=== PATIENT | female | born 1995 | race Caucasian/White ===

== ENCOUNTER 2016-11-20 20:47 | Outpatient (CLI) | payer OTHER ==
[~2016-11-20] VITALS: Ht 167.6 cm; Wt 54.0 kg
[~2016-11-20 20:47] MED LIST: PRENTAB26 PO
[2016-11-20 21:27] VITALS: Ht 167.6 cm; Wt 54.0 kg
[2016-11-20] MEDS ORDERED: POLY335019 PO (22:25)
[2016-11-20] MEDS ORDERED: STOOL SOFTNER PO (22:25)
[2016-11-21] MEDS ORDERED: CEPH500C PO (00:01)
--- NOTE | 2016-11-24 11:37 | EDITING REQUIRED CODING QUERY ---
DIAGNOSIS NEEDED To promote full compliance with coding requirements relating to patient care, physician participation is requested in all cases of furniture lumber production worker uncertainty. Please assist us with the question(s) below: Coding Question: The patient received care in labor and delivery on 11/20/16 as noted within the record. Please document the diagnosis that is being addressed by the medication/treatment. Provider Response: DIAGNOSIS: Abdominal pain WEEKS OF : 26 weeks Thank you for your assistance, Deborah Madden - Certified Pathology Assistant
== END 2016-11-20 21:41 | disposition other institution (70) ==
LOC: C.LD 20:47 → C.OPB 20:47
PROVIDERS: ATTEND Obstetrics & Gynecology
DX: O99.89 Other specified diseases and conditions complicating pregnancy, childbirth and the puerperium (principal); R10.9 Unspecified abdominal pain; Z3A.26 26 weeks gestation of pregnancy

== ENCOUNTER 2016-11-20 21:45 | Emergency (ER) | payer OTHER ==
[~2016-11-20] VITALS: Ht 167.6 cm; Wt 54.0 kg
[2016-11-20 21:49] VITALS: TEMP 37; Ht 167.6 cm; Wt 54.0 kg
[2016-11-20] MEDS ORDERED: SODIUM CHLORIDE 0.9% 1000ML 1,000 ML IV STA (22:03)
--- NOTE | 2016-11-20 22:11 | EMERGENCY ROOM VISIT NOTE ---
History First contact with patient: 21:53 Chief Complaint: ABDOMINAL PAIN Stated Complaint: PAIN IN STOMACH History of Present Illness The patient is a 21 year old female who presents to the Emergency Department by private vehicle for evaluation of her nausea and upper abdominal discomfort. She reports that she wakes not feeling well in general. She has had some nausea without vomiting. She reports having had approximately 3 nosebleeds per day for the past few days. She was evaluated by OB per monitor and sent to the emergency department for further evaluation and management. The patient is 21 weeks and her second . She's had no cough occasions to this point. She's had no vaginal bleeding or discharge. There is been no burning with urination or blood in her urine. She is still feeling movement. She rates her current discomfort as a 7/10. She denies any headaches, dizziness , lightheadedness, chest pain, palpitations, worsening shortness of breath, hemoptysis, hematochezia, melena, hematuria, or dysuria. She reports no upper respiratory infections or fevers. Review of Systems A complete 10-point Review of Systems was discussed with the patient, with pertinent positives and negatives listed in the History of Present Illness. All remaining Review of Systems questions can be considered negative unless otherwise specified. Past Medical/Surgical History Medical Problems: (1) No known health problems Family History No pertinent family history Social History Smoking Status: Former Smoker Smokeless Tobacco Use: No Alcohol Use: none Drug Use: none Marital Status: single Housing Status: lives with family Occupation Status: employed Current/Historical Medications Scheduled Cephalexin Monohydrate (Keflex), 500 MG PO TID Multivit/Min/Iron/Fol Ac/Pren ( Vitamin), 1 TAB PO DAILY [Stool Softner], 1 TAB PO DAILY Scheduled PRN Polyethylene Glycol 3350 (Miralax), 17 GM PO DAILY PRN for Constipation Allergies Coded Allergies: No Known Allergies (Verified , NONE, 09/05/16) Physical Exam Vital Signs Date Time Temp Pulse Resp B/P Pulse Ox O2 Delivery O2 Flow Rate FiO2 11/21/16 00:27 86 18 106/62 93 11/20/16 22:55 83 18 104/59 100 Room Air 11/20/16 21:49 37.0 100 20 98/67 98 Pain Rating (0-10): 7 Physical Exam VITAL SIGNS - Vital signs and nursing notes were reviewed. GENERAL - 21-year-old female appearing her stated age who is in no acute distress. Communicates well with provider and answers questions appropriately. NOSE - Midline and without cyanosis. No epistaxis or purulent drainage noted. Septum midline without deviation or septal hematoma noted. LUNGS - Chest wall symmetric without accessory muscle use, intercostals retractions, or central cyanosis. Normal vesicular breath sounds CTA B/L. No wheezes, rales, or rhonchi appreciated. CARDIAC - RRR with S1/S2. No murmur, rubs, or gallops appreciated. ABDOMEN - Abdominal contour gravid and without pulsations or visible masses. BS normoactive all four quadrants. No tenderness to palpation appreciated throughout. No guarding. No Rebound Tenderness. Negative Rovsing's. Negative Valiente's. No palpable masses, hepatosplenomegaly, or ascites noted. EXTREMITIES - No clubbing or peripheral cyanosis. No pretibial edema present. PSYCH - A&Ox3 and cooperates fully with examiner. Pt is very pleasant and interacts well with examiner. Medical Decision & Procedures ER Provider Diagnostic Interpretation: Radiological imaging and reports were reviewed by myself. Radiologist's Interpretation per [facility] as follows: US OB LIMITED: Single live IUP with heart rate of 148 beats per minute measuring consistent with provided gestational dates. Placenta is anterior without evidence of previa. Cervix is poorly profiled although appears unremarkable. Possible 1 cm residual corpus luteal cyst left ovary. Laboratory Results 11/20/16 22:10 Red Blood Count 4.11, Mean Corpuscular Volume 86.4, Mean Corpuscular Hemoglobin 28.7, Mean Corpuscular Hemoglobin Concent 33.2, Mean Platelet Volume 9.6, Neutrophils (%) (Auto) 87.7, Lymphocytes (%) (Auto) 7.2, Monocytes (%) (Auto) 4.5, Eosinophils (%) (Auto) 0.1, Basophils (%) (Auto) 0.1, Neutrophils # (Auto) 7.24, Lymphocytes # (Auto) 0.59, Monocytes # (Auto) 0.37, Eosinophils # (Auto) 0.01, Basophils # (Auto) 0.01 11/20/16 22:10 Test 11/20/16 22:10 White Blood Count 8.25 K/uL (4.8-10.8) Red Blood Count 4.11 M/uL (4.2-5.4) Hemoglobin 11.8 g/dL (12.0-16.0) Hematocrit 35.5 % (37-47) Mean Corpuscular Volume 86.4 fL (80-100) Mean Corpuscular Hemoglobin 28.7 pg (25-34) Mean Corpuscular Hemoglobin Concent 33.2 g/dl (32-36) Platelet Count 187 K/uL (130-400) Mean Platelet Volume 9.6 fL (7.4-10.4) Neutrophils (%) (Auto) 87.7 % Lymphocytes (%) (Auto) 7.2 % Monocytes (%) (Auto) 4.5 % Eosinophils (%) (Auto) 0.1 % Basophils (%) (Auto) 0.1 % Neutrophils # (Auto) 7.24 K/uL (1.4-6.5) Lymphocytes # (Auto) 0.59 K/uL (1.2-3.4) Monocytes # (Auto) 0.37 K/uL (0.11-0.59) Eosinophils # (Auto) 0.01 K/uL (0-0.5) Basophils # (Auto) 0.01 K/uL (0-0.2) RDW Standard Deviation 41.2 fL (36.4-46.3) RDW Coefficient of Variation 13.0 % (11.5-14.5) Immature Granulocyte % (Auto) 0.4 % Immature Granulocyte # (Auto) 0.03 K/uL (0.00-0.02) Prothrombin Time 9.5 SECONDS (9.0-12.0) Prothromb Time International Ratio 0.9 (0.9-1.1) Activated Partial Thromboplast Time 24.9 SECONDS (21.0-31.0) Partial Thromboplastin Ratio 1.0 Urine Color YELLOW Urine Appearance CLOUDY (CLEAR) Urine pH 8.5 (4.5-7.5) Urine Specific [place] 1.011 (1.000-1.030) Urine Protein NEG (NEG) Urine Glucose (UA) NEG (NEG) Urine Ketones NEG (NEG) Urine Occult Blood NEG (NEG) Urine Nitrite NEG (NEG) Urine Bilirubin NEG (NEG) Urine Urobilinogen NEG (NEG) Urine Leukocyte Esterase MODERATE (NEG) Urine WBC (Auto) 10-30 /hpf (0-5) Urine RBC (Auto) 0-4 /hpf (0-4) Urine Hyaline Casts (Auto) 1-5 /lpf (0-5) Urine Epithelial Cells (Auto) >30 /lpf (0-5) Urine Bacteria (Auto) 1+ (NEG) Urine Renal Epithelial Cells /lpf (0-5) Urine Crystals AMORPHOUS SEDIMENT (NONE Anion Gap 9.0 mmol/L (3-11) Est Creatinine Clear Calc Drug Dose 173.5 ml/min Estimated GFR () > 150.0 Estimated GFR (Non- 143.4 BUN/Creatinine Ratio 17.4 (10-20) Calcium Level 8.6 mg/dl (8.5-10.1) Magnesium Level 1.9 mg/dl (1.8-2.4) Total Bilirubin 0.6 mg/dl (0.2-1) Aspartate Amino Transf (AST/SGOT) 31 U/L (15-37) Alanine Aminotransferase (ALT/SGPT) 52 U/L (12-78) Alkaline Phosphatase 70 U/L (45-117) Total Protein 6.9 gm/dl (6.4-8.2) Albumin 3.3 gm/dl (3.4-5.0) Globulin 3.6 gm/dl (2.5-4.0) Albumin/Globulin Ratio 0.9 (0.9-2) Lipase 118 U/L (73-393) Medications Administered Medications (Trade) Dose Ordered Sig/Sherine Route Start Time Stop Time Status Last Admin Dose Admin Sodium Chloride (Nss 1000ml) 1,000 ml @ 999 mls/hr Q1H1M STAT IV 11/20/16 22:03 11/20/16 23:03 DC 11/20/16 22:18 999 MLS/HR Cephalexin Monohydrate (Keflex 500MG Home Pack) 1 homepack NOW ONCE PO 11/21/16 00:00 11/21/16 00:01 DC 11/21/16 00:21 1 HOMEPACK Cephalexin Monohydrate (Keflex Cap) 500 mg NOW ONCE PO 11/21/16 00:00 11/21/16 00:01 DC 11/21/16 00:15 500 MG ED Course Patient was seen and evaluated by myself. Labs were drawn, saline lock in place. ultrasound was ordered. Patient was hydrated with 1000 mL of normal saline. Laboratory results demonstrate no acute leukocytosis, worrisome anemia, or bandemia. The patient has no significant electrolyte abnormalities. Urinalysis concerning for infection. She will be treated with Keflex. ultrasound as above. Laboratory results and imaging studies were reviewed with the patient and family who acknowledges understanding. The patient and family were educated on worrisome symptoms for return visit to the emergency department. Patient discharged home in good condition. Medical Decision Given the patient's presentation and stated complaints, I did elect to perform the above-mentioned workup. The patient presents today with generalized malaise and lower abdominal discomfort. She has a soft and nontender abdomen which is gravid. She has no fever leukocytosis. Her urine is question for infection. She will be covered with Keflex pending urine cultures. ultrasound is within normal limits. She was seen by the SWING FRAME GRINDER OPERATOR provider lead sales consultant and was monitored without issue. She will follow closely with her office this week. She will return for any changing or worsening symptoms. Patient discharged home afebrile and in good condition. In the evaluation and treatment of this patient, the following differential diagnoses were considered: Ectopic, , threatened , placenta previa, placental abruption, Kidney Stone, STI, Bladder Cancer, Amongst Others. Impression Primary Impression: Suprapubic abdominal pain Additional Impressions: UTI (urinary tract infection), , Malaise Departure Information Dispostion Home / Self-Care Condition GOOD Prescriptions Cephalexin Monohydrate (Keflex) 500 Mg Cap 500 MG PO TID for 7 Days, #21 CAP Prov: Allen Tejada PA-C 11/21/16 Referrals Corinne Weathers M.D. (MEDICAL) (PCP) Patient Instructions A Signature Page, ED UTI Cystitis Female Additional Instructions You have been treated in the Emergency Department for a Urinary Tract Infection (UTI). You have been prescribed Keflex to be taken as prescribed. This is an antibiotic. All antibiotics have the potential to cause diarrhea. Stop this medication and contact a medical provider if you were to develop any significant adverse side effects including: wheezing, shortness of breath, passing out, vomiting, or a diffuse rash. Always take antibiotics as directed and COMPLETE the ENTIRE course regardless of the improvement of your symptoms. For pain control, you can use the following [id number] medicines (if >12 yo): - Regular strength (325mg/tab) Tylenol (acetaminophen) 2 tabs every 4-6 hours as needed. Do not exceed 12 tablets in a 24 hour period. Avoid taking more than 4 grams (4000 mg) of Tylenol per day. This includes any other sources of acetaminophen you may take on a regular basis. Return to the emergency department if your symptoms worsen despite treatment course outlined above. Drink plenty of water and stay well hydrated. As with any trip to the Emergency Department, you should follow-up with your Primary Care Provider from today's visit. Return to the emergency department if your symptoms persist despite treatment plan outlined above or if the following symptoms occur: increased fevers, chills , low back pain, nausea/vomiting, or blood in your urine.
[2016-11-20] MEDS ORDERED: POLY335019 PO (22:25)
[2016-11-20] MEDS ORDERED: STOOL SOFTNER PO (22:25)
[2016-11-20 22:27] LABS: BASO % 0.1 %; BASO ABS # 0.01 K/uL (0-0.2); COMPLETE YES; EOS % 0.1 %; HEMATOCRIT 35.5 % (37-47); IG% 0.4 %; LYMPH % 7.2 %; LYMPH ABS # 0.59 K/uL (1.2-3.4); MEAN CELL VOLUME 86.4 fL (80-100); MEAN CORPUSCULAR HEMOGLOBIN 28.7 pg (25-34); MEAN CORPUSCULAR HGB CONC 33.2 g/dl (32-36); MEAN PLATELET VOLUME 9.6 fL (7.4-10.4); MONO % 4.5 %; NEUT % 87.7 %; PLATELET COUNT 187 K/uL (130-400); RED BLOOD COUNT 4.11 M/uL (4.2-5.4); WHITE BLOOD COUNT 8.25 K/uL (4.8-10.8)
[2016-11-20 22:41] LABS: INR 0.9 (0.9-1.1); PROTHROMBIN TIME (PATIENT) 9.5 SECONDS (9.0-12.0)
[2016-11-20 22:44] LABS: ALT/SGPT 52 U/L (12-78); BLOOD UREA NITROGEN 8 mg/dl (7-18); BUN/CREATININE RATIO 17.4 (10-20); CALCIUM 8.6 mg/dl (8.5-10.1); CARBON DIOXIDE 24 mmol/L (21-32); CHLORIDE 107 mmol/L (98-107); CREATININE 0.43 mg/dl (0.60-1.20); GLUCOSE 76 mg/dl (70-99); MAGNESIUM 1.9 mg/dl (1.8-2.4); POTASSIUM 3.5 mmol/L (3.5-5.1); SODIUM 140 mmol/L (136-145)
[2016-11-20 22:47] LABS: ALB/GLOB RATIO 0.9 (0.9-2); ALKALINE PHOSPHATASE 70 U/L (45-117); AST/SGOT 31 U/L (15-37)
[2016-11-20 23:03] LABS: URINE APPEARANCE CLOUDY (CLEAR); URINE BILIRUBIN NEG (NEG); URINE COLOR YELLOW; URINE EPITHELIAL CELL AUTO >30 /lpf (0-5); URINE NITRITE NEG (NEG); URINE PH 8.5 (4.5-7.5); URINE SPECIFIC GRAVITY 1.011 (1.000-1.030); UROBILINOGEN NEG (NEG); ZZUR CULT IF INDIC CLEAN CATCH YES
[2016-11-20 23:18] LABS: MANUAL MICROSCOPIC REQUIRED? NO; REVIEW REQ? YES
[2016-11-21] MEDS ORDERED: CEPHALEXIN MONOHYDRATE 250 MG CAP PO ONE
[2016-11-21] MEDS ORDERED: CEPHALEXIN 500MG HOME PACK 1 EA BTL PO ONE
[2016-11-21] MEDS ORDERED: CEPH500C PO (00:01)
[2016-11-21 00:27] VITALS: BP 106/62; PULSE 86; O2SAT 93
--- NOTE | 2016-11-21 09:27 | DIAGNOSTIC IMAGING REPORT ---
LIMITED (US) CLINICAL HISTORY: Generalized abdominal pain. COMPARISON STUDY: Pelvic ultrasound 06/23/2015. FINDINGS: The cervix is not well visualized but appears closed. There is an anterior placenta. No evidence for subchorionic hematoma. Normal amniotic fluid volume. heart rate is 148 bpm. The ovaries are within normal limits. 1 cm cyst within the left ovary. The estimated gestational age is 22 weeks and 2 days based off the biparietal diameter. IMPRESSION: Single viable intrauterine gestation with a heart rate of 148 bpm. Electronically signed by: Spencer Simpson M.D. 11/21/2016 9:25 AM Dictated Date/Time: 11/21/2016 9:22 AM
== END 2016-11-21 00:29 | disposition home or self-care (01) ==
LOC: C.EDB 21:46 → C.EDA 11-21 00:29
DX: O26.892 Other specified pregnancy related conditions, second trimester (principal); R10.30 Lower abdominal pain, unspecified; O23.42 Unspecified infection of urinary tract in pregnancy, second trimester; Z3A.21 21 weeks gestation of pregnancy; Z87.891 Personal history of nicotine dependence; Z79.899 Other long term (current) drug therapy

== ENCOUNTER 2017-02-20 10:24 | Emergency (ER) | payer OTHER ==
[~2017-02-20] VITALS: Ht 167.6 cm; Wt 59.1 kg
[~2017-02-20 10:24] MED LIST changes: +POLY335019 PO; +STOOL SOFTNER PO
[2017-02-20 10:48] VITALS: TEMP 36.7; Ht 167.6 cm; Wt 59.1 kg
[2017-02-20] MEDS ORDERED: DOCU1TAB6 PO (11:10)
--- NOTE | 2017-02-20 11:30 | DIAGNOSTIC IMAGING REPORT ---
LEFT FOOT MIN 3 VIEWS ROUTINE CLINICAL HISTORY: Left foot pain following injury. COMPARISON: None FINDINGS: Alignment of the left foot is anatomic. Tarsometatarsal joints are intact. There is no acute fracture. IMPRESSION: No acute fracture or dislocation of the left foot. Electronically signed by: Cuba Pitt M.D. 02/20/2017 11:27 AM Dictated Date/Time: 02/20/2017 11:16 AM
--- NOTE | 2017-02-20 11:38 | EMERGENCY ROOM VISIT NOTE ---
ED Visit Note First contact with patient: 10:53 CHIEF COMPLAINT: Left Foot injury HISTORY of present illness: This 22-year-old female presents the ER with chief complaint of left foot pain. The patient states that her son dropped a Gatorade bottle on her left foot yesterday but she did not think anything of it until last night when she went to bed she started having pain in the left foot. The patient states the pain is across the top of the foot mainly on the lateral aspect. The patient denies any ankle pain. The patient denies any numbness and tingling in her toes. The patient denies any prior injury to her left foot. REVIEW OF SYSTEMS: 6 system review was performed and was negative unless stated otherwise in history of present illness. PMH: The patient is healthy; wisdom teeth removal SOCIAL HISTORY: Patient lives with her son. The patient denies any tobacco or alcohol use. PHYSICAL EXAM: Vital Signs: Were reviewed Reviewed Nurse's notes. GENERAL: 22- year-old female appears in no acute distress. MENTAL Status: Alert and oriented 3. LEFT Foot: There is tenderness and swelling over the dorsum of the foot but no deformity. This is tenderness is over the fourth and fifth metatarsal region and lateral tarsal region. Patient is able to move her toes without difficulty. Sensation is intact. EMERGENCY DEPARTMENT COURSE: The patient was evaluated. The patient was offered pain medication but declined. X-ray of the left foot was ordered and interpreted by the radiologist and myself. DIAGNOSTICS:LEFT FOOT MIN 3 VIEWS ROUTINE CLINICAL HISTORY: Left foot pain following injury. COMPARISON: None FINDINGS: Alignment of the left foot is anatomic. Tarsometatarsal joints are intact. There is no acute fracture. IMPRESSION: No acute fracture or dislocation of the left foot. Electronically signed by: Cuba Pitt M.D. 02/20/2017 11:27 AM Dictated Date/Time: 02/20/2017 11:16 AM The patient was informed of the findings. She was given crutches. The patient was discharged home in stable condition. DIAGNOSIS: Left foot pain TREATMENT PLAN: Wear supportive shoes. Tylenol as needed for pain. Use crutches to aid in ambulation until pain is tolerable without them. Ice the area several times a day especially after long periods of weightbearing. If symptoms persist or worsen, follow-up with your family doctor. Problem List Medical Problems: (1) No known health problems Status: Chronic Current/Historical Medications Scheduled Multivit/Min/Iron/Fol Ac/Pren ( Vitamin), 1 TAB PO DAILY Scheduled PRN Docusate Sodium (Docusate Sodium), 100 MG PO DAILY PRN for Constipation Polyethylene Glycol 3350 (Miralax), 17 GM PO DAILY PRN for Constipation Allergies Coded Allergies: No Known Allergies (Verified , NONE, 02/20/17) Vital Signs Date Time Temp Pulse Resp B/P Pulse Ox O2 Delivery O2 Flow Rate FiO2 02/20/17 10:48 36.7 97 16 108/60 97 Room Air Departure Information Referrals Corinne Weathers M.D. (MEDICAL) (PCP) Patient Instructions [facility]
[2017-02-20 11:55] VITALS: BP 115/72; PULSE 89; O2SAT 100
== END 2017-02-20 11:56 | disposition home or self-care (01) ==
LOC: C.EDB 10:25 → C.EDD 11:56
DX: M79.672 Pain in left foot (principal)

== ENCOUNTER 2017-02-28 08:36 | Outpatient (CLI) | payer OTHER ==
[~2017-02-28] VITALS: Ht 167.6 cm; Wt 59.0 kg
[~2017-02-28 08:36] MED LIST changes: +DOCU1TAB6 PO; -STOOL SOFTNER PO
[2017-02-28 09:25] VITALS: Ht 167.6 cm; Wt 59.0 kg
--- NOTE | 2017-02-28 09:25 | Progress Note ---
Progress Note Date of Service Feb 28, 2017. 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 Noted blood in toilet this AM with no cramping or abdominal pain. Has had diarrhea yesterday and has experienced constipation with this . No history of recent intercourse or any trauma. Normal ultrasound. GBS is positive. FHT Cat 1. Sterile speculum exam done with no pooling of fluid. Nitrazine negative with no ferning noted. Thick discharge from cervix noted. Will discharge home and follow up in office this week or to call if any changes noted.
== END 2017-02-28 09:40 | disposition home or self-care (01) ==
LOC: C.OPB 08:36 → C.LD 08:38 → C.OPB 09:40
PROVIDERS: ATTEND Obstetrics & Gynecology
DX: O26.853 Spotting complicating pregnancy, third trimester (principal); Z3A.36 36 weeks gestation of pregnancy

== ENCOUNTER 2017-03-30 19:29 | Inpatient (IN) | payer OTHER ==
[~2017-03-30] VITALS: Ht 167.6 cm; Wt 60.0 kg
[2017-03-30 21:00] VITALS: Ht 167.6 cm; Wt 60.0 kg
[2017-03-30] MEDS ORDERED: PRENTAB26 PO (21:02)
[2017-03-30] MEDS ORDERED: LACTATED RINGER'S 1000ML 1,000 ML IV SCH (22:40)
[2017-03-30] MEDS ORDERED: LACTATED RINGER'S 1000ML 1,000 ML IV PRN (22:40)
[2017-03-30] MEDS ORDERED: PENICILLIN G POTASSIUM IV 3 MU in DEXTROSE 5% 100ML 100 ML IV PRN (23:00)
[2017-03-30 23:02] LABS: HEMATOCRIT 32.5 % (37-47); MEAN CELL VOLUME 84.9 fL (80-100); MEAN CORPUSCULAR HEMOGLOBIN 27.4 pg (25-34); MEAN CORPUSCULAR HGB CONC 32.3 g/dl (32-36); PLATELET COUNT 222 K/uL (130-400); RED BLOOD COUNT 3.83 M/uL (4.2-5.4); WHITE BLOOD COUNT 9.05 K/uL (4.8-10.8)
[2017-03-30] MEDS ORDERED: PENICILLIN G POTASSIUM IV 6 MU in DEXTROSE 5% 250ML 250 ML IV STA (23:02)
[2017-03-30] MEDS ORDERED: OXYTOCIN 30 UNITS/500ML NSS IV ONE (23:40)
[2017-03-31] VITALS (7 sets, daily range): BP systolic 112–118; BP diastolic 63–69; PULSE 63–88; TEMP 36.7–37.1; O2SAT 97
[2017-03-31] MEDS ORDERED: BENZOCAINE 20% AER SPR 82.5 GM CAN EXT PRN
[2017-03-31] MEDS ORDERED: OXYTOCIN 30 UNITS/500ML NSS IV PRN
[2017-03-31] MEDS ORDERED: HYDROCORTISONE ACETATE 25 MG SUPP PR PRN
[2017-03-31] MEDS ORDERED: OXYCODONE/ACETAMINOPHEN 5-325 TAB PO PRN
[2017-03-31] MEDS ORDERED: DIPHTHERIA/TETANUS/PERTUSSIS 0.5 ML SYR/VIAL IM. ONE
[2017-03-31] MEDS ORDERED: SUPERCREAM 0.870 % 15GM JAR EXT PRN
[2017-03-31] MEDS ORDERED: LANOLIN OINT EXT PRN ×2
[2017-03-31] MEDS ORDERED: ACETAMINOPHEN/CODEINE 300/30MG TAB PO PRN
[2017-03-31] MEDS ORDERED: ACETAMINOPHEN 325 MG TAB PO PRN
--- NOTE | 2017-03-31 01:50 | DELIVERY SUMMARY ---
DATE OF OPERATION: 03/30/2017 TIME OF DELIVERY: 2346. DELIVERY OF PLACENTA: 2347. DELIVERY NOTE: Patient is a 22-anna-old 2, para 1 at 40 weeks and 1 day gestation, who was admitted to labor and delivery on the evening of 03/30/2017 for active labor. She progressed on her own. She was elizabeth adequately. She did not receive an epidural for anesthesia. Artificial rupture of membranes was performed at 2326. The patient had the urge to push. She pushed to delivery at 2347. She delivered a viable male in the right occiput anterior position to an intact perineum. Baby was delivered and placed on the patient's abdomen. Cord was clamped x2 and cut. Apgars were 8 at 1 minute and 9 at 5 minutes. Please see nursing notes for further baby assessment. Cord blood was then obtained and an intact placenta with 3-vessel cord was delivered at 2348. Oxytocin infusion was then begun. The lower uterine segment and vagina were cleared of any blood clots and debris. Exploration of the perineum revealed no lacerations. Estimated blood loss is 300 mL. All sponge and instrument counts were found to be correct x2. Patient and baby tolerated the delivery well and were in recovery with stable vital signs. I attest to the content of the Intraoperative Record and any orders documented therein. Any exceptio ns are noted below.
[2017-03-31 06:43] LABS: HEMATOCRIT 32.6 % (37-47)
[2017-03-31] MEDS: IBUPROFEN 600 MG TAB PO PRN ×2 (08:08→19:51)
[2017-03-31] MEDS: DOCUSATE SODIUM 100 MG CAP PO SCH ×2 (09:23→19:50)
[2017-03-31] MEDS: PRENATAL VITAMIN TAB PO SCH (09:24)
[2017-03-31] MEDS: FERROUS SULFATE 325 MG TAB PO SCH (09:24)
[2017-03-31] MEDS: ACETAMINOPHEN/CODEINE 300/30MG TAB PO PRN (11:14)
--- NOTE | 2017-03-31 12:24 | OB/GYN Progress Note ---
OBIEE ARCHITECT Progress Note Date of Service March 31, 2017. Subjective conversation w/ patient, physical exam Ambulation: ambulating normally Voiding: no voiding problems Passing Gas: Yes Diet Tolerance: Regular Diet Lochia: Small Objective Vital Signs Date Time Temp Pulse Resp B/P Pulse Ox O2 Delivery O2 Flow Rate FiO2 03/31/17 07:38 37.0 72 16 113/68 97 Room Air 03/31/17 07:38 97 Room Air 03/31/17 04:30 37.1 88 18 117/67 Room Air 03/31/17 02:50 36.9 77 18 118/69 Room Air 03/31/17 02:50 Room Air Physical Exam General Appearance: WELL-APPEARING, NO APPARENT DISTRESS Abdomen: non tender, soft Fundus: Firm Extremities: non-tender, normal inspection, no pedal edema, no calf tenderness Laboratory Results Last 24 Hours Test 03/30/17 22:53 03/31/17 06:18 White Blood Count 9.05 K/uL Red Blood Count 3.83 M/uL Hemoglobin 10.5 g/dL 10.1 g/dL Hematocrit 32.5 % 32.6 % Mean Corpuscular Volume 84.9 fL Mean Corpuscular Hemoglobin 27.4 pg Mean Corpuscular Hemoglobin Concent 32.3 g/dl RDW Standard Deviation 40.8 fL RDW Coefficient of Variation 13.4 % Platelet Count 222 K/uL Mean Platelet Volume 9.0 fL Assessment and Plan Post- Day Number: 1 Continue Routine Care: associate director career services consult tent d/c in AM
[2017-03-31] MEDS ORDERED: BISACODYL 5 MG TABEC PO SCH (20:00)
[2017-04-01] MEDS: ACETAMINOPHEN/CODEINE 300/30MG TAB PO PRN (03:40)
[2017-04-01] MEDS ORDERED: BISACODYL 10 MG SUPP PR PRN (07:00)
[2017-04-01 07:16] LABS: HEMATOCRIT 33.6 % (37-47); MEAN CELL VOLUME 85.5 fL (80-100); MEAN CORPUSCULAR HEMOGLOBIN 26.2 pg (25-34); MEAN CORPUSCULAR HGB CONC 30.7 g/dl (32-36); MEAN PLATELET VOLUME 9.5 fL (7.4-10.4); PLATELET COUNT 211 K/uL (130-400); RED BLOOD COUNT 3.93 M/uL (4.2-5.4); WHITE BLOOD COUNT 12.06 K/uL (4.8-10.8)
--- NOTE | 2017-04-01 07:57 | OB/GYN Progress Note ---
LOFTSMAN/WOMAN Progress Note Date of Service: April 01, 2017. Patient is seen and examined. She feels well, no complaints. Ambulating without dizziness Voiding without difficulty Tolerating regular diet with out N&V Bleeding is minimal No fever/ chills/ CP/ SOB/ N&V/ Leg pain Breast feeding without problems Date Time Temp Pulse Resp B/P Pulse Ox O2 Delivery O2 Flow Rate FiO2 03/31/17 23:25 Room Air 03/31/17 23:25 36.7 68 18 114/64 Room Air 03/31/17 19:30 36.9 83 16 114/65 Room Air 03/31/17 15:10 37.1 83 18 112/63 Room Air 03/31/17 15:10 Room Air 03/31/17 12:10 37.0 63 16 112/66 Room Air Last 24 Hours Test 04/01/17 06:56 White Blood Count 12.06 K/uL Red Blood Count 3.93 M/uL Hemoglobin 10.3 g/dL Hematocrit 33.6 % Mean Corpuscular Volume 85.5 fL Mean Corpuscular Hemoglobin 26.2 pg Mean Corpuscular Hemoglobin Concent 30.7 g/dl RDW Standard Deviation 41.4 fL RDW Coefficient of Variation 13.3 % Platelet Count 211 K/uL Mean Platelet Volume 9.5 fL PE: General: Alert, orientedx3, NAD Abd: soft, NT, fundus firm, below Umbilicus Perineum intact, Lochia rubra minimal Ext; NT, no edema AP: 22 yo s/p , ppd# 2 VSS Afebrile doing well Continue routine care All questions were answered Instructions were given when to call D/C home with baby
--- NOTE | 2017-04-01 07:59 | Discharge Instructions ---
Discharge Instructions Date of Service April 01, 2017. Admission Reason for Admission: Decreased Movement Discharge Discharge Diagnosis / Problem: Discharge Goals Goal(s): Routine recovery after delivery Medications Continue Dispensed Medications: lansinoh Activity Recommendations Activity Limitations: as noted below Lifting Limitations: gradually increase as tolerated Exercise/Sports Limitations: until after follow-up appointment May Resume Sexual Activity: after follow-up appointment Shower/Bathe: no limitations Driving or Machine Use: ACTIVITY RECOMMENDATIONS: * Gradual return to full activity over the next 2-3 weeks. * No lifting - nothing heavier than baby over the next 2-3 weeks. * Do not engage in vigorous exercise, sexual activity or sports until cleared by your physician. * Do not drive or operate any motorized equipment until cleared by your physician. * You may shower/bathe daily. BREAST CARE: If you are not breast feeding: * Wear a supportive bra 24 hours a day for one to two weeks. * Avoid stimulating your breasts and nipples as much as possible during the first few weeks after delivery. * When taking a shower, have the warm water hit your back, not breasts. * When your breasts feel full, apply ice packs. Usually three to four times a day helps ease the discomfort. * Take a mild pain medication (Tylenol/Motrin) when you are uncomfortable. If breast feeding: * Use breast milk to lubricate nipples. Lansinoh cream may be used for sore nipples. You do not need to remove cream prior to breast feeding. If using a different brand of cream, check the label for directions regarding removal of cream prior to nursing. * Wear a supportive bra. * If having problems with breasts or breast feeding, call a natural remedy consultant or your health care provider. EPISIOTOMY CARE: After delivery, if you have an episiotomy (stitches), the following steps will ease discomfort and aid healing. * For the first 24 hours after delivery, place ice packs next to your episiotomy to help reduce swelling. * After the first 24 hour-period, sitz baths, either portable or in the tub, are suggested. A shower with a shower arm sprayed over the episiotomy may be comforting. * Luz care should be done after each voiding and bowel movement. Squirt warm water from a plastic bottle over the perineum (region of the body between the anus and urinary opening) and pat dry. * Use Dermoplast to ease discomfort. Shake container. [place] directly over the episiotomy. * Place a Tucks on a clean sanitary pad next to your episiotomy. OVER THE COUNTER MEDICATION: * For discomfort or pain, you may use Acetaminophen (Tylenol), Ibuprofen (Advil ), or Naproxen (Aleve) following the package directions. * For constipation you may use Colace following the package directions. SPECIAL CARE INSTRUCTIONS: When you are discharged from the hospital, it is important for you to follow the instructions listed below: * During the first week at home, you should be able to care for yourself and your baby. In addition, the usual light household activities are encouraged. * Limit your activities to the way you feel. Do not try to clean the house or move furniture. Be sensible. * If you actively engage in sports and have done so up until the time of your delivery, you may resume these activities as soon as you feel able. This may take up to one month or even longer. Use good judgment. * Continue to take your vitamins for at least six weeks after the of your baby. * Your diet need not be limited unless you were on a special diet before your delivery. Breast-feeding mothers need around 2500 calories per day and at least 64-80 ounces of fluid per day (8 to 10 glasses). * You should eat foods from the four major food groups. Crash diets or fad diets are to be avoided. Eating lean meats, fresh fruits and vegetables, low-fat dairy products, high fiber foods and a regular exercise program, will help you get back to your pre- weight without putting your health at risk. * Constipation is sometimes a problem after delivery. Take a mild laxative as needed. If breast feeding, Milk of Magnesia is acceptable to use. You may use a suppository or Fleets enema if no episiotomy. * A daily shower or tub bath is suggested. Be sure to thoroughly and gently dry the perineum. * A bloody vaginal discharge will usually continue until around four weeks post . A small amount of bleeding may continue for as long as six weeks. Vaginal discharge changes from the bright red bleeding after delivery to pink then brownish and finally yellowish-pink before becoming white and disappearing. * Bleeding may increase with activity. Your first period may come in 4-8 weeks. If you are breast feeding, your period may be delayed even longer. * [place] (sex) can begin whenever both you and your partner feel comfortable and do not have any form of genital infection. It is recommended that you wait until after your return appointment and discuss with your physician. If you have questions, please talk to your health care practitioner. A condom should be used to prevent infection and . * Foreplay, gentle intercourse and lubrication is very important the first several times to prevent pain. A water-based lubricant such as K-Y jelly or Astroglide may be used. * Tampons may be used six weeks after delivery. * Douching should be avoided for 6 weeks after delivery. * If you have RH negative blood and your baby is RH positive, you will receive RHOGAM by injection prior to discharge. The nurse will give you a card to keep with you that has the date and place that you received RHOGAM after delivery. * During your care, you had a Rubella screen done to check for the presence of rubella antibodies in your blood. If your test was negative, you will receive a Rubella vaccine prior to discharge. This vaccine may cause a fever, soreness at the injection site and flu-like symptoms. If these symptoms persist, notify your health care practitioner. is not advised for three months after a Rubella vaccine. There is a higher chance of having a baby with defects if conceived within three months of getting the vaccine. * If you were discharged 24 hours from delivery or before 48 hours: Visiting nurses will come to your home 48 hours after discharge to assess you and your baby. The visiting nurse will meet with you while you are in the hospital to arrange a time and get directions to your home. * Verbalizes understanding of car seat law as reviewed with patient nursing. * Car Seat hand-out given and reviewed with patient by nursing. * Shaken baby information reviewed with patient by nursing. Call you doctor if: * Heavy bleeding (saturating several pads an hour) or passing clots the size of your fist. * A fever >101 degrees F (38.3 degrees C) on two occasions four hours apart and/or chills. * Unusual pain in the pelvic or vaginal areas. * "Baby Blues" lasting longer than two weeks. If you have any questions or concerns, call your health care practitioner at . FOLLOW-UP VISIT: * Please call the office at to schedule a 6 week examination. It is important you keep this appointment. * It is important for you to make arrangements for either yearly or twice yearly check-ups thereafter. . Current Hospital Diet Patient's current hospital diet: Regular OB Diet Discharge Diet Recommended Diet: Regular Diet Pending Studies Studies pending at discharge: no Medical Emergencies . Who to Call and When: Medical Emergencies: If at any time you feel your situation is an emergency, please call 911 immediately. . Non-Emergent Contact Non-Emergency issues call your: Primary Care Provider, Surgeon Call Non-Emergent contact if: temperature is above 100.5, your pain is not controlled . . "Provider Documentation" section prepared by Marcus Brady. . VTE Core Measure Inpt VTE Proph given/why not?: Treatment not indicated
[2017-04-01 08:01] VITALS: BP 107/60; PULSE 61; TEMP 36.7
[2017-04-01] MEDS: DOCUSATE SODIUM 100 MG CAP PO SCH (08:17)
[2017-04-01] MEDS: FERROUS SULFATE 325 MG TAB PO SCH (08:17)
[2017-04-01] MEDS: PRENATAL VITAMIN TAB PO SCH (08:17)
[2017-04-01] MEDS: IBUPROFEN 600 MG TAB PO PRN (08:19)
[2017-04-01 15:30] VITALS: BP_DIAS 60; PULSE 61; TEMP 36.7
== END 2017-04-01 16:25 | disposition home or self-care (01) | DRG 775 ==
LOC: C.LD 19:29 → C.OPB 19:29 → C.LD 22:41 → C.MS4N 03-31 03:14
PROVIDERS: ADMIT Obstetrics & Gynecology; ATTEND Obstetrics & Gynecology
PROC: 10E0XZZ Delivery of Products of Conception, External Approach (ICD-10-PCS; principal; 2017-03-30)
DX: O48.0 Post-term pregnancy (principal); O99.824 Streptococcus B carrier state complicating childbirth; Z3A.40 40 weeks gestation of pregnancy; Z37.0 Single live birth

== ENCOUNTER 2018-02-14 13:24 | Emergency (ER) | payer OTHER ==
[~2018-02-14] VITALS: Ht 167.6 cm; Wt 49.3 kg
[2018-02-14 13:28] VITALS: TEMP 36.7; Ht 167.6 cm; Wt 49.3 kg
[2018-02-14] MEDS ORDERED: SODIUM CHLORIDE 0.9% 1000ML 1,000 ML IV STA (13:46)
[2018-02-14 14:04] VITALS: O2SAT 100
[2018-02-14 14:14] LABS: BASO % 0.1 %; BASO ABS # 0.01 K/uL (0-0.2); EOS % 0.3 %; EOS ABS # 0.03 K/uL (0-0.5); HEMATOCRIT 34.6 % (37-47); HEMOGLOBIN 11.8 g/dL (12.0-16.0); IG# 0.02 K/uL (0.00-0.02); LYMPH ABS # 1.26 K/uL (1.2-3.4); MEAN CELL VOLUME 87.8 fL (80-100); MEAN CORPUSCULAR HEMOGLOBIN 29.9 pg (25-34); MEAN CORPUSCULAR HGB CONC 34.1 g/dl (32-36); MEAN PLATELET VOLUME 9.3 fL (7.4-10.4); MONO % 4.6 %; MONO ABS # 0.53 K/uL (0.11-0.59); NEUT % 83.8 %; NEUT ABS # 9.56 K/uL (1.4-6.5); PLATELET COUNT 192 K/uL (130-400); RED CELL DISTRIBUTION WIDTH CV 12.6 % (11.5-14.5); RED CELL DISTRIBUTION WIDTH SD 40.8 fL (36.4-46.3); WHITE BLOOD COUNT 11.41 K/uL (4.8-10.8)
[2018-02-14 14:34] LABS: ALBUMIN 3.7 gm/dl (3.4-5.0); CALCIUM 8.7 mg/dl (8.5-10.1); CREATININE 0.57 mg/dl (0.60-1.20); POTASSIUM 3.8 mmol/L (3.5-5.1)
[2018-02-14 14:36] LABS: TOTAL PROTEIN 7.2 gm/dl (6.4-8.2)
--- NOTE | 2018-02-14 14:52 | DIAGNOSTIC IMAGING REPORT ---
CHEST 2 VIEWS ROUTINE CLINICAL HISTORY: Syncope. COMPARISON STUDY: Chest radiograph June 23, 2015. FINDINGS: Lung volumes are normal. No pneumothorax or pleural effusion is noted. Cardiac size is normal. Mediastinal contours are normal. No consolidation. The appearance of the chest is unchanged. IMPRESSION: No acute cardiopulmonary findings. Electronically signed by: Cuba Pitt M.D. 02/14/2018 2:51 PM Dictated Date/Time: 02/14/2018 2:48 PM
--- NOTE | 2018-02-14 15:40 | EMERGENCY ROOM VISIT NOTE ---
History First contact with patient: 13:33 Chief Complaint: SYNCOPE Stated Complaint: PASSING OUT History of Present Illness The patient is a 23 year old female who presents to the Emergency Room with complaints of syncope x1 this afternoon while at work. The patient reports history of similar episodes in the past, several times per year since 6th grade. The most recent episode was 02/02/18. The patient was not evaluated for this most recent syncopal episode. She states she has been seen here in the past for syncopal episodes, and has not had an etiology identified. The patient does have a primary care provider, however has not followed up with them recently or ever regarding the syncopal episodes. The patient does believe she lost consciousness, however the episode was unwitnessed and she is uncertain. She states she had lowered herself to the ground, and denies any falling. She does not have a cardiac history, she denies any hypertension, hypotension, diabetes, heart palpitations, chest pain, or dyspnea associated with her symptoms. She did have a D&C to terminate a completed on Tuesday, and has had some bleeding associated with this, but nothing significant. She states she was told not to be concerned unless she is soaking through 2 pads per hour. She states she is nowhere near this amount of bleeding. She denies any abdominal or pelvic pain or cramping. She denies any urinary symptoms. She does report some associated lightheadedness, dizziness, and nausea prior to the syncopal episode, however denies any vomiting. She is feeling normally now, however feels fatigued. She denies any recent travel. 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 She states her day today was no different than a normal day. Review of Systems A complete 10 point review of systems was reviewed with the patient with pertinent positives and negatives as per history of present illness. All else were negative. Past Medical/Surgical History Medical Problems: (1) Active labor at term (2) Decreased movement (3) No known health problems (4) with vaginal bleeding (5) Term (6) Uterine contractions Family History No pertinent family history Social History Smoking Status: Never Smoker Alcohol Use: none Drug Use: none Marital Status: single Housing Status: lives with family Occupation Status: employed Current/Historical Medications No Active Prescriptions or Reported Meds Physical Exam Vital Signs Date Time Temp Pulse Resp B/P (MAP) Pulse Ox O2 Delivery O2 Flow Rate FiO2 02/14/18 17:24 76 16 99/65 99 02/14/18 16:10 65 12 98/62 100 Room Air 02/14/18 14:19 69 16 99/71 99 Room Air 02/14/18 14:14 74 02/14/18 14:10 69 12 102/59 100 Room Air 57 105/64 77 99/71 02/14/18 14:04 100 Room Air 02/14/18 13:28 36.7 83 20 113/73 100 Room Air Physical Exam VITALS: Vitals are noted on the nurse's note and reviewed by myself. Vital signs stable. GENERAL: This is a 23-year-old white female, in no acute distress, nondiaphoretic, well-developed well-nourished. SKIN: The skin was without rashes, erythema, edema, or bruising. There is no tenting of the skin. Capillary reflex less than 2 seconds. HEAD: Normocephalic atraumatic. EARS: External auditory canals clear, tympanic membranes pearly bull without erythema or effusion bilaterally. EYES: Pupils equal round and reactive to light and accommodation. Conjunctivae without injection, sclerae without icterus. Extraocular movements intact. NOSE: Patent, turbinates without inflammation or discharge. No sinus tenderness. MOUTH: Mucous membranes moist. Tonsils are not enlarged. Pharynx without erythema or exudate. Uvula midline. Airway patent. Tongue does not deviate. NECK: Supple without nuchal rigidity. No lymphadenopathy. No thyromegaly. Cervical spine is nontender. No JVD. HEART: Regular rate and rhythm without murmurs gallops or rubs. LUNGS: Clear to auscultation bilaterally without wheezes, rales or rhonchi. No dullness to percussion. No retractions or accessory muscle use. ABDOMEN: Positive bowel sounds x 4. Normal tympanic percussion. Soft, nontender, without masses or organomegaly. [place] sign negative. No guarding or rebound tenderness. MUSCULOSKELETAL: No muscle atrophy, erythema, or edema noted. Full range of motion without joint tenderness in all extremities. No tenderness to palpation. Normal gait. Strength 5/5 throughout. NEURO: Patient was alert and oriented to person place and time. Normal sensation to light and sharp touch. Deep tendon reflexes 2+ throughout. No focal neurological deficits. Medical Decision & Procedures ER Provider Diagnostic Interpretation: CHEST 2 VIEWS ROUTINE CLINICAL HISTORY: Syncope. COMPARISON STUDY: Chest radiograph June 23, 2015. FINDINGS: Lung volumes are normal. No pneumothorax or pleural effusion is noted. Cardiac size is normal. Mediastinal contours are normal. No consolidation. The appearance of the chest is unchanged. IMPRESSION: No acute cardiopulmonary findings. Electronically signed by: Cuba Pitt M.D. 02/14/2018 2:51 PM Dictated Date/Time: 02/14/2018 2:48 PM PELVIC ULTRASOUND CLINICAL HISTORY: Recent dilatation and evacuation. Vaginal bleeding. Syncope. COMPARISON STUDY: ultrasound November 20, 2016. TECHNIQUE: Transabdominal sonography of the pelvis was performed. Transvaginal imaging was deferred in this patient given recent procedure. FINDINGS: The uterus measures 8.8 x 5.7 x 6.2 cm. Endometrium measures 2.3 cm in thickness. No areas of increased vascularity are identified within the endometrium. No endometrial mass is identified. Evaluation is suboptimal given lack of transvaginal imaging. Neither ovary was visualized. A small amount of fluid was noted within the pelvis. IMPRESSION: 1. Endometrial thickness of 2.3 cm with no areas of increased vascularity or mass-like abnormalities within the endometrium. Therefore, no convincing sonographic evidence of retained products of conception. However, if persistent vaginal bleeding, short-term sonographic follow up is recommended. 2. Nonvisualization of the ovaries. 3. Trace fluid within the pelvis. Electronically signed by: Cuba Pitt M.D. 02/14/2018 5:03 PM Dictated Date/Time: 02/14/2018 4:57 PM Laboratory Results 02/14/18 14:00 Red Blood Count 3.94, Mean Corpuscular Volume 87.8, Mean Corpuscular Hemoglobin 29.9, Mean Corpuscular Hemoglobin Concent 34.1, Mean Platelet Volume 9.3, Neutrophils (%) (Auto) 83.8, Lymphocytes (%) (Auto) 11.0, Monocytes (%) (Auto) 4.6, Eosinophils (%) (Auto) 0.3, Basophils (%) (Auto) 0.1, Neutrophils # (Auto) 9.56, Lymphocytes # (Auto) 1.26, Monocytes # (Auto) 0.53, Eosinophils # (Auto) 0.03, Basophils # (Auto) 0.01 02/14/18 14:00 Test 02/14/18 14:00 02/14/18 14:05 White Blood Count 11.41 K/uL (4.8-10.8) Red Blood Count 3.94 M/uL (4.2-5.4) Hemoglobin 11.8 g/dL (12.0-16.0) Hematocrit 34.6 % (37-47) Mean Corpuscular Volume 87.8 fL (80-100) Mean Corpuscular Hemoglobin 29.9 pg (25-34) Mean Corpuscular Hemoglobin Concent 34.1 g/dl (32-36) Platelet Count 192 K/uL (130-400) Mean Platelet Volume 9.3 fL (7.4-10.4) Neutrophils (%) (Auto) 83.8 % Lymphocytes (%) (Auto) 11.0 % Monocytes (%) (Auto) 4.6 % Eosinophils (%) (Auto) 0.3 % Basophils (%) (Auto) 0.1 % Neutrophils # (Auto) 9.56 K/uL (1.4-6.5) Lymphocytes # (Auto) 1.26 K/uL (1.2-3.4) Monocytes # (Auto) 0.53 K/uL (0.11-0.59) Eosinophils # (Auto) 0.03 K/uL (0-0.5) Basophils # (Auto) 0.01 K/uL (0-0.2) RDW Standard Deviation 40.8 fL (36.4-46.3) RDW Coefficient of Variation 12.6 % (11.5-14.5) Immature Granulocyte % (Auto) 0.2 % Immature Granulocyte # (Auto) 0.02 K/uL (0.00-0.02) Anion Gap 8.0 mmol/L (3-11) Est Creatinine Clear Calc Drug Dose 117.4 ml/min Estimated GFR () 149.3 Estimated GFR (Non- 128.8 BUN/Creatinine Ratio 28.7 (10-20) Calcium Level 8.7 mg/dl (8.5-10.1) Total Bilirubin 0.8 mg/dl (0.2-1) Aspartate Amino Transf (AST/SGOT) 18 U/L (15-37) Alanine Aminotransferase (ALT/SGPT) 20 U/L (12-78) Alkaline Phosphatase 75 U/L (45-117) Total Protein 7.2 gm/dl (6.4-8.2) Albumin 3.7 gm/dl (3.4-5.0) Globulin 3.5 gm/dl (2.5-4.0) Albumin/Globulin Ratio 1.1 (0.9-2) Human Chorionic Gonadotropin, Quant 1763 mIU/mL Urine Color RED Urine Appearance SL CLOUDY (CLEAR) Urine pH 6.5 (4.5-7.5) Urine Specific [place] <= 1.005 (1.000-1.030) Urine Protein 1+ (NEG) Urine Glucose (UA) NEG (NEG) Urine Ketones NEG (NEG) Urine Occult Blood 3+ (NEG) Urine Nitrite NEG (NEG) Urine Bilirubin NEG (NEG) Urine Urobilinogen NEG (NEG) Urine Leukocyte Esterase MODERATE (NEG) Urine RBC >30 /hpf (0-4) Urine WBC >30 /hpf (0-5) Urine Epithelial Cells 5-10 /lpf (0-5) Urine Bacteria (NEG) Urine Test POS (NEG) Urine Opiates Screen NEG (NEG) Urine Methadone, Qualitative NEG (NEG) Urine Barbiturates NEG (NEG) Urine Phencyclidine (PCP) Level NEG (NEG) Ur Amphetamine/Methamphetamine NEG (NEG) MDMA (Ecstasy) Screen NEG (NEG) Urine Benzodiazepines Screen NEG (NEG) Urine Cocaine Metabolite NEG (NEG) Urine Marijuana (THC) NEG (NEG) Medications Administered Medications (Trade) Dose Ordered Sig/Sherine Route Start Time Stop Time Status Last Admin Dose Admin Sodium Chloride 1,000 ml @ 999 mls/hr Q1H1M STAT IV 02/14/18 13:46 02/14/18 14:46 DC 02/14/18 14:13 999 MLS/HR ECG Per My Interpretation Indication: syncope Rate (beats per minute): 68 Rhythm: sinus with SA Findings: no acute ischemic change, no ectopy Comparison ECG Date: 06/2015 Change: no significant change ED Course The patient was seen and evaluated as above IV access obtained, labs drawn. EKG performed. This was interpreted by myself as above. Chest x-ray performed and reviewed by myself and radiologist. The patient was given 1 L normal saline solution and did note mild improvement in symptoms. I discussed the findings with the patient at bedside. The patient states "I just want to go home". I did offer further studies or fluids, and the patient declines. I discussed the case with Dr. Ley, who did recommend pelvic ultrasound due to positive test. The patient was agreeable to ultrasound. Ultrasound performed and reviewed by myself and radiologist as above. I discussed the findings with the patient at bedside. I discussed the findings with Dr. Ley. Discharge instructions reviewed, the patient was discharged home in good condition. Medical Decision This is a 23-year-old female patient presents to the emergency department for one episode of syncope. She states she had symptoms of diaphoresis, visual disturbances, and feeling of warmth prior to the episode. She has had similar episodes in the past over the past approximately 15 years, and states they always present similarly. She denies any obvious triggers, and has not had outpatient workup performed. She has had workup here in the emergency department performed, without any obvious causes. The patient did recently have a D&C to terminate a , which was performed at an outpatient clinic , as it was an elective . She is scheduled to follow-up outpatient with her emotional support teacher next week. The patient's workup here in the emergency department was overall negative. She was slightly hypotensive which I suspect is related to recent syncopal event and mild hypovolemia. The patient's BP is normally low-normal. No significant change with orthostatic vital signs. The patient is slightly anemic , consistent with previous labs. Hgb 11.8, Hct 34.6. No renal, hepatic, electrolyte abnormality. No obvious infection in the urine noted, however the urine test appear contaminated which I suspect is related to the vaginal bleeding. Quantitative hCG 1763 which does appear consistent with recent termination of 8 week . Urine toxicology screen negative. Patient's chest x-ray does not show any abnormalities or infectious process. ultrasound negative for obvious intrauterine or retained products of conception. The endometrial stripe was enlarged at 2.3 cm, however I feel that this is consistent with the patient's recent procedure. She will continue to follow-up outpatient with her emotional support teacher regarding management of these findings. Prior to discharge, the patient was feeling slightly improved. She was agreeable to the assessment and plan at this time. I did recommend close outpatient follow-up with her primary care provider, as this has been an ongoing issue. I did recommend an echocardiogram and possible further cardiology workup, and the patient verbalized understanding. Etiologies such as vasovagal event, infection, retained products of conception, intrauterine , ectopic , uterine fibroids, malignancy, hypoglycemia, electrolyte abnormalities, cardiac sources, intracerebral event, toxicologic, neurologic, as well as others were entertained. The chart was completed utilizing [employer] Speech voice recognition software. Grammatical errors, random word insertions, pronoun errors, and incomplete sentences are an occasional consequence of this system due to software limitations, ambient noise, and hardware issues. Any formal questions or concerns about the content, text, or information contained within the body of this dictation should be directly addressed to the provider for clarification. Medication Reconcilliation Current Medication List: was personally reviewed by me Blood Pressure Screening Patient's blood pressure: Low blood pressure Blood pressure disposition: Referred to PCP Impression Primary Impression: Syncope Departure Information Dispostion Home / Self-Care Condition GOOD Prescriptions No Active Prescriptions or Reported Meds Referrals Corinne Weathers M.D. (MEDICAL) (PCP) Olinda Taylor Patient Instructions ED Dizziness Syncope Fainting W Pre, My [facility] Additional Instructions You were seen in the emergency department today for a syncopal episode. As discussed, labs and imaging did not reveal any obvious acute causes for your symptoms. I suspect the blood loss associated with your recent surgical procedure is contributing to your symptoms. Please drink plenty of fluids and stay well-hydrated. Please eat regular meals. Ibuprofen(Motrin, Advil) may be used for fever or pain. Use 600mg every six hours as needed. Take with food. Avoid using more than 2400mg in a 24 hour period. Do not use 2400mg per day for more than three consecutive days without physician direction. Prolonged inappropriate use can lead to stomach upset or ulcers. (AND/OR) Acetaminophen(Tylenol) may be used for fever or pain. Use 1000mg every six hours as needed. Avoid using more than 3000mg in a 24 hour period. As discussed, it is imperative for you to follow-up outpatient with your primary care provider regarding ongoing workup and management of your symptoms. I do recommend this follow-up occurs this week. Follow-up with your emotional support teacher in 2-3 days for repeat HCG testing to ensure it is decreasing and for further evaluation/management of your bleeding. Return to the emergency department for any further episodes of syncope, systemic symptoms, fever, chest pain, difficulty breathing, abdominal pain, or other concerning symptoms. Problem Qualifiers Primary Impression: Syncope Syncope type: unspecified Qualified Codes: R55 - Syncope and collapse
--- NOTE | 2018-02-14 17:04 | DIAGNOSTIC IMAGING REPORT ---
PELVIC ULTRASOUND CLINICAL HISTORY: Recent dilatation and evacuation. Vaginal bleeding. Syncope. COMPARISON STUDY: ultrasound November 20, 2016. TECHNIQUE: Transabdominal sonography of the pelvis was performed. Transvaginal imaging was deferred in this patient given recent procedure. FINDINGS: The uterus measures 8.8 x 5.7 x 6.2 cm. Endometrium measures 2.3 cm in thickness. No areas of increased vascularity are identified within the endometrium. No endometrial mass is identified. Evaluation is suboptimal given lack of transvaginal imaging. Neither ovary was visualized. A small amount of fluid was noted within the pelvis. IMPRESSION: 1. Endometrial thickness of 2.3 cm with no areas of increased vascularity or mass-like abnormalities within the endometrium. Therefore, no convincing sonographic evidence of retained products of conception. However, if persistent vaginal bleeding, short-term sonographic follow up is recommended. 2. Nonvisualization of the ovaries. 3. Trace fluid within the pelvis. Electronically signed by: Cuba Pitt M.D. 02/14/2018 5:03 PM Dictated Date/Time: 02/14/2018 4:57 PM
[2018-02-14 17:24] VITALS: BP 99/65; PULSE 76; O2SAT 99
== END 2018-02-14 17:28 | disposition home or self-care (01) ==
LOC: C.EDB 13:26 → C.EDC 17:28
DX: R55 Syncope and collapse (principal)